=== PATIENT | male | born 1955 | race Caucasian/White ===

== ENCOUNTER 2018-07-08 19:06 | Emergency (ER) | payer OTHER ==
--- NOTE | 2018-07-08 19:55 | EDPHYS ---
Physician Documentation [facility] Name: Bob Fraga Age: 63 yrs Sex: Male : 1955 Arrival Date: 07/08/2018 Time: 19:11 Bed 12 Private MD: ED Physician Ruben Rizzo HPI: 07/08 22:10 This 63 yrs old Male presents to ER via Ambulatory with complaints of Rash. kb 22:10 The patient's rash thought to be caused by an unknown cause. The rash is located on the kb body diffusely. The rash can be described as urticarial. Onset: The symptoms/episode began/occurred today, at 12:00. Associated signs and symptoms: Pertinent positives: itching. Severity of symptoms: At their worst the symptoms were moderate in the emergency department the symptoms are unchanged. Treatment given at home: Benadryl. The patient has not experienced similar symptoms in the past. The patient has not recently seen a physician. Historical: - Allergies: 19:17 No Known Allergies; la1 - PMHx: 19:17 Hypertension; la1 - Immunization history:: Adult Immunizations up to date. - Social history:: Smoking status: Patient uses tobacco products, smokes one-half pack cigarettes per day. - Ebola Screening: : No symptoms or risks identified at this time. ROS: 22:10 Constitutional: Negative for fever, chills, and weight loss, Cardiovascular: Negative kb for chest pain, palpitations, and edema, Respiratory: Negative for shortness of breath, cough, wheezing, and pleuritic chest pain, Abdomen/GI: Negative for abdominal pain, nausea, vomiting, diarrhea, and constipation, MS/Extremity: Negative for injury and deformity, Neuro: Negative for headache, weakness, numbness, tingling, and seizure. 22:10 Skin: Positive for rash, diffusely. Exam: 22:10 Constitutional: This is a well developed, well nourished patient who is awake, alert, kb and in no acute distress. Head/Face: Normocephalic, atraumatic. Chest/axilla: Normal chest wall appearance and motion. Nontender with no deformity. No lesions are appreciated. Cardiovascular: Regular rate and rhythm with a normal S1 and S2. No gallops, murmurs, or rubs. Normal PMI, no JVD. No pulse deficits. Respiratory: Lungs have equal breath sounds bilaterally, clear to auscultation and percussion. No rales, rhonchi or wheezes noted. No increased work of breathing, no retractions or nasal flaring. Abdomen/GI: Soft, non-tender, with normal bowel sounds. No distension or tympany. No guarding or rebound. No evidence of tenderness throughout. MS/ Extremity: Pulses equal, no cyanosis. Neurovascular intact. Full, normal range of motion. Neuro: Awake and alert, GCS 15, oriented to person, place, time, and situation. Cranial nerves II-XII grossly intact. Motor strength 5/5 in all extremities. Sensory grossly intact. Cerebellar exam normal. Normal gait. 22:10 Skin: rash a moderate rash is noted, consistent with urticaria, and is diffusely located. Vital Signs: 19:17 BP 127 / 70; Pulse 80; Resp 16; Temp 97.6; Pulse Ox 98% on R/A; Weight 71.67 kg; Height la1 5 ft. 11 in. (180.34 cm); 19:17 Body Mass Index 22.04 (71.67 kg, 180.34 cm) la1 MDM: 19:38 Patient medically screened. kb 19:52 Data reviewed: vital signs, nurses notes. Data interpreted: Pulse oximetry: on room air kb is 98 %. Interpretation: normal. Counseling: I had a detailed discussion with the patient and/or guardian regarding: the historical points, exam findings, and any diagnostic results supporting the discharge/admit diagnosis, the need for outpatient follow up, a family practitioner, to return to the emergency department if symptoms worsen or persist or if there are any questions or concerns that arise at home. Administered Medications: 20:15 Drug: predniSONE 40 mg Route: PO; bb 20:28 Follow up: Response: No adverse reaction bb 20:15 Drug: Pepcid 20 mg Route: PO; bb 20:28 Follow up: Response: No adverse reaction bb Disposition: 07/09 06:53 Co-signature as Attending Physician, Ruben Rizzo MD I agree with the assessment and 4 plan of care. Disposition: 07/08/18 19:54 Discharged to Home. Impression: Urticaria. - Condition is Stable. - Discharge Instructions: Hives, [id number], Allergies, [id number]. - Prescriptions for Pepcid 20 mg Oral Tablet - take 1 tablet by ORAL route every 12 hours for 5 days; 10 tablet. Prednisone 20 mg Oral Tablet - take 1 tablet by ORAL route once daily for 5 days; 5 tablet. - Medication Reconciliation Form, Thank You Letter, Antibiotic Education, Prescription Opioid Use form. - Follow up: Emergency Department; When: As needed; Reason: Worsening of condition. Follow up: Private Physician; When: 2 - 3 days; Reason: Recheck today's complaints, Continuance of care, Re-evaluation by your physician. Signatures: Velia Nichole, [employer]INCIPAL-Louann Robles RN RN bb Angel Sevilla RN RN la1 Ruben Rizzo MD MD tw4 Corrections: (The following items were deleted from the chart) 07/08 20:29 19:54 07/08/2018 19:54 Discharged to Home. Impression: Urticaria. Condition is Stable. bb Forms are Medication Reconciliation Form, Thank You Letter, Antibiotic Education, Prescription Opioid Use. Follow up: Emergency Department; When: As needed; Reason: Worsening of condition. Follow up: Private Physician; When: 2 - 3 days; Reason: Recheck today's complaints, Continuance of care, Re-evaluation by your physician. kb
--- NOTE | 2018-07-08 19:55 | ER ---
Nurse's Notes [facility] Name: Bob Fraga Age: 63 yrs Sex: Male : 1955 Arrival Date: 07/08/2018 Time: 19:11 Bed 12 Private MD: Diagnosis: Urticaria Presentation: 07/08 19:16 Presenting complaint: Patient states: Itchy red rash all over thorax that began around la1 noon, denies SOB. Airway patent. Presenting complaint: Patient states: Benadryl 50mg taken about an hour ago. Transition of care: patient was not received from another setting of care. Onset of symptoms was July 08, 2018. Risk Assessment: Do you want to hurt yourself or someone else? Patient reports no desire to harm self or others. Initial Sepsis Screen: Does the patient meet any 2 criteria? No. Patient's initial sepsis screen is negative. Does the patient have a suspected source of infection? No. Patient's initial sepsis screen is negative. Care prior to arrival: None. 19:16 Method Of Arrival: Ambulatory la1 19:16 Acuity: CATIE 4 la1 Historical: - Allergies: 19:17 No Known Allergies; la1 - PMHx: 19:17 Hypertension; la1 - Immunization history:: Adult Immunizations up to date. - Social history:: Smoking status: Patient uses tobacco products, smokes one-half pack cigarettes per day. - Ebola Screening: : No symptoms or risks identified at this time. Screenin:43 Abuse screen: Denies threats or abuse. Nutritional screening: No deficits noted. la1 Tuberculosis screening: No symptoms or risk factors identified. Fall Risk None identified. Assessment: 19:42 General: Appears in no apparent distress. Behavior is calm, cooperative. Pain: Denies la1 pain. Neuro: Level of Consciousness is awake, alert, obeys commands, Oriented to person, place, time, situation. Cardiovascular: Capillary refill < 3 seconds Patient's skin is warm and dry. Respiratory: Airway is patent Respiratory effort is even, unlabored, Respiratory pattern is regular, symmetrical. GI: No signs and/or symptoms were reported involving the gastrointestinal system. : No signs and/or symptoms were reported regarding the genitourinary system. Derm: Rash noted that is macular, itchy, red, raised, urticaria, on back, chest and abdomen. 20:28 Reassessment: Patient is alert, oriented x 3, equal unlabored respirations, skin bb warm/dry/pink. pt verbalized understanding of and agrees to plan of care discharge instructions given pt ambulated with steady gait to exit accompanied by family. Vital Signs: 19:17 BP 127 / 70; Pulse 80; Resp 16; Temp 97.6; Pulse Ox 98% on R/A; Weight 71.67 kg; Height la1 5 ft. 11 in. (180.34 cm); 19:17 Body Mass Index 22.04 (71.67 kg, 180.34 cm) la1 ED Course: 19:11 Patient arrived in ED. es 19:17 Triage completed. la1 19:17 Arm band placed on left wrist. la1 19:28 Velia Nichole FNP-C is [facility]. kb 19:28 Ruben Rizzo MD is Attending Physician. kb 19:43 Call light in reach. Side rails up X 1. la1 19:43 No provider procedures requiring assistance completed. la1 20:29 Patient did not have IV access during this emergency room visit. bb Administered Medications: 20:15 Drug: predniSONE 40 mg Route: PO; bb 20:28 Follow up: Response: No adverse reaction bb 20:15 Drug: Pepcid 20 mg Route: PO; bb 20:28 Follow up: Response: No adverse reaction bb Outcome: 19:54 Discharge ordered by . kb 20:29 Discharged to home ambulatory, with family. bb 20:29 Condition: stable 20:29 Discharge instructions given to patient, Instructed on discharge instructions, follow up and referral plans. medication usage, Demonstrated understanding of instructions, follow-up care, medications, Prescriptions given X 2. 20:29 Patient left the ED. bb Signatures: Velia Nichole FNP-C FNP-Ckb Salyer, Edna es Ballard, Brenda, RN RN bb Angel Sevilla RN RN la1
[2018-07-08] MEDS ORDERED: FAMOTIDINE 20 MG TAB ONE (20:37)
[2018-07-08] MEDS ORDERED: predniSONE 20 MG TAB ONE (20:37)
== END 2018-07-08 20:29 | disposition home or self-care (01) ==
LOC: ER 19:06
DX: L50.9 Urticaria, unspecified (principal); I10 Essential (primary) hypertension; F17.210 Nicotine dependence, cigarettes, uncomplicated
CPT/HCPCS: 99283; J7512

== ENCOUNTER 2022-04-06 16:21 | Inpatient (IN) | payer OTHER ==
--- OUTSIDE RECORDS SUMMARY | 2022-04-06 16:24 | XMS REPORT | Continuity of Care Document ---
:1955 Author Organization [facility] t Address [address] [place] [address] Care Team Providers Name Role Phone 2, [facility] Attending Clinician Unavailable Lisa Lombardi MD Attending Clinician Doctor Unassigned, [place] Attending Clinician Unavailable Payers Payer Name Policy Type Policy Number Effective Date Expiration Date S ource Problems This patient has no known problems. Allergies, Adverse Reactions, Alerts This patient has no known allergies or adverse reactions. Social History Social Habit Start Date Stop Date Quantity Comments Source Sex Assigned [facility] Smoking Status Start Date Stop Date Source Unknown if ever smoked [facility] Medications This patient has no known medications. Procedures Procedure Date / Time Performing Clinician Source Performed AGREEMENTS AUTHORIZATIONS 2019-04-11 06:01:00 Doctor Connie, [facility] AND IRREVOCABLE [place] [facility] ASSIGNMENTS (FORM 2000) Encounters Start End Encounter Admission Attending Care Care Encounter Source Date/Time Date/Time Type Type Clinicians Facility Department ID 2019-04-11 2019-04-11 Library Helper 2, Ad[facility] Lab [facility] [id number] Univers 10:35:56 10:50:56 Visit Lisa Lombardi [id number] [facility] [id number] [phone] [place] [address] [address] [facility] 2019-04-11 2019-04-11 Orders Doctor NAGY [id number] Univers 00:00:00 00:00:00 Only UnassignedNYASIA [id number] ity of [place] [facility] [id number] Alessandro as [phone] Medi darrius [address] Branch Results This patient has no known results.
[2022-04-06 18:17] LABS: Hematocrit 29.5 % (39.6-49.0); Lymphocytes % 5.6 % (15.3-44.8); MCV 85.3 fL (80-100); RBC Red Blood Cell Count 3.45 M/uL (4.33-5.43)
[2022-04-06 18:27] LABS: Protime INR 1.02
[2022-04-06 18:31] LABS: SARS-CoV-2 Antigen Rapid Res Negative (Negative)
--- NOTE | 2022-04-06 18:34 | ER ---
Nurse's Notes [facility] Name: Bob Fraga Age: 67 yrs Sex: Male : 1955 Arrival Date: 04/06/2022 Time: 16:26 Bed 15 Private MD: Diagnosis: Intertrochanteric fracture of femur;Syncope Near;Hypo-osmolality and hyponatremia Presentation: 04/06 16:29 Chief complaint: EMS states: MALAISE x1 WK WITH COVID, LOW BP TODAY. Coronavirus bp screen: Client reports previous positive COVID test result. Ebola Screen: No symptoms or risks identified at this time. Initial Sepsis Screen: Does the patient meet any 2 criteria? No. Patient's initial sepsis screen is negative. Does the patient have a suspected source of infection? No. Patient's initial sepsis screen is negative. Risk Assessment: Do you want to hurt yourself or someone else? Patient reports no desire to harm self or others. Onset of symptoms is unknown. Care prior to arrival: IV initiated. 20 GA, in the left forearm. 16:29 Method Of Arrival: EMS: [facility] bp 16:29 Acuity: CATIE 3 bp Triage Assessment: 16:30 General: Appears in no apparent distress. comfortable, Behavior is calm, cooperative, bp appropriate for age. Pain: Denies pain. EENT: No deficits noted. Neuro: Level of Consciousness is awake, alert, obeys commands, Oriented to Appropriate for age Reports weakness GENERAL. Cardiovascular: No deficits noted. Respiratory: No deficits noted. GI: No signs and/or symptoms were reported involving the gastrointestinal system. : No signs and/or symptoms were reported regarding the genitourinary system. Derm: No deficits noted. Musculoskeletal: No deficits noted. Historical: - Allergies: 16:30 No Known Allergies; bp - Home Meds: 16:30 lisinopril 20 mg Oral tab 1 tab once daily [Active]; bp - PMHx: 16:30 Hypertension; bp - Immunization history:: Adult Immunizations up to date. - Social history:: Smoking status: Patient denies any tobacco usage or history of. Screenin:31 [facility] ED Fall Risk Assessment (Adult) History of falling in the last 3 months, bp including since admission Yes- single mechanical fall (1 pt) Confusion or Disorientation No (0 pts) Intoxicated or Sedated No (0 pts) Impaired Gait Yes (1 pt) Mobility Assist Device Used No (0 pt) Altered Elimination No (0 pt) Score/Fall Risk Level 0 - 2 = Low Risk Oriented to surroundings, Maintained a safe environment, Educated pt \T\ family on fall prevention, incl call for assistance when getting out of bed. Abuse screen: Denies threats or abuse. Denies injuries from another. Nutritional screening: No deficits noted. Tuberculosis screening: No symptoms or risk factors identified. Assessment: 16:31 General: SEE TRIAGE NOTE. bp 18:15 Reassessment: No changes from previously documented assessment. R HIP GROSSLY ABNORMAL bp ON XRAY. 19:15 General: Appears in no apparent distress. comfortable, Behavior is calm, cooperative, bp appropriate for age. Pain: Denies pain. Neuro: Level of Consciousness is awake, alert, obeys commands, Oriented to person, place, time, situation. Cardiovascular: Capillary refill < 3 seconds Patient's skin is warm and dry. Respiratory: Airway is patent Respiratory effort is even, unlabored, Respiratory pattern is regular, symmetrical. GI: No signs and/or symptoms were reported involving the gastrointestinal system. Abdomen is round non-distended. : No signs and/or symptoms were reported regarding the genitourinary system. EENT: No signs and/or symptoms were reported regarding the EENT system. Derm: No signs and/or symptoms reported regarding the dermatologic system. Skin is pink, warm \T\ dry. Musculoskeletal: No signs and/or symptoms reported regarding the musculoskeletal system. Circulation, motion, and sensation intact. Range of motion: intact in all extremities. 20:15 Reassessment: Patient appears in no apparent distress at this time. Patient and/or bp family updated on plan of care and expected duration. Pain level reassessed. Patient is alert, oriented x 3, equal unlabored respirations, skin warm/dry/pink. 21:20 General: Appears comfortable, Behavior is calm, cooperative. Pain: Denies pain. Neuro: ha1 Level of Consciousness is awake, alert, obeys commands, Oriented to person, place, time, situation. Cardiovascular: Capillary refill < 3 seconds Patient's skin is warm and dry. Respiratory: Airway is patent Respiratory effort is even, unlabored, Respiratory pattern is regular, symmetrical. GI: 21:45 Reassessment: Patient and/or family updated on plan of care and expected duration. Pain ha1 level reassessed. Patient is alert, oriented x 3, equal unlabored respirations, skin warm/dry/pink. notified care provider of low BP. 22:00 Reassessment: Patient and/or family updated on plan of care and expected duration. Pain ha1 level reassessed. Patient is alert, oriented x 3, equal unlabored respirations, skin warm/dry/pink. Patient denies pain at this time. Vital Signs: 16:29 BP 110 / 60; Pulse 85; Resp 17; Temp 98; Pulse Ox 95% ; bp 18:15 BP 91 / 71; Pulse 90; Resp 16; Pulse Ox 100% ; bp 19:15 BP 87 / 68; Pulse 87; Resp 16; Pulse Ox 100% on R/A; bp 20:15 BP 93 / 81; Pulse 90; Resp 17; Pulse Ox 100% on R/A; bp 21:30 BP 100 / 65; Pulse 84; Resp 18 S; Pulse Ox 99% on R/A; ha1 21:45 BP 91 / 60; Pulse 73; Resp 18 S; Pulse Ox 100% on R/A; ha1 22:00 BP 106 / 67; Pulse 78; Resp 18 S; Pulse Ox 100% on R/A; ha1 ED Course: 16:26 Patient arrived in ED. bp 16:30 Triage completed. bp 16:30 Arm band placed on. bp 16:31 Patient has correct armband on for positive identification. Bed in low position. Call bp light in reach. Side rails up X2. 16:31 Maintain EMS IV. Dressing intact. Good blood return noted. Site clean \T\ dry. Gauge \T\ bp site: 20 GAUGE LEFT FA. 16:52 Adrián Hogan MD is Attending Physician. bs3 17:21 Slick Britton, GREGORIO is Primary Nurse. bp 17:59 Inserted saline lock: 20 gauge in right forearm, using aseptic technique. Blood bp collected. 18:32 Nate Duke MD is Hospitalizing Provider. bs3 20:21 Notified Nurse Practitioner and/or Physician Hazardous Materials Handler of a critical lab result(s), bb lactate of 3.8 Angel Sevilla RACE RELATIONS ADVISER notified. 21:00 Joseph cath inserted, using sterile technique, 16 Fr., by ny, balloon inflated, to bp gravity drainage, urine specimen collected. Patient tolerated well. 04/07 07:19 Attending Physician role handed off by Adrián Hogan MD sp3 07:19 Lilly Trujillo MD is Attending Physician. sp3 Administered Medications: 04/06 21:54 Discontinued: Lactated Ringers Solution 1000 ml IV at calculated rate continuous la1 17:30 Drug: NS 0.9% 500 ml Route: IV; Rate: bolus; Site: left forearm; bp 18:59 CANCELLED (Other Intervention Used): NS 0.9% 1000 ml IV at 1000 ml once la1 20:30 Drug: Potassium Chloride 20 mEq Route: IV; Rate: calculated rate; Site: left wrist; bp 20:30 Drug: Lactated Ringers Solution 1000 ml Route: IV; Rate: calculated rate; Site: left bp wrist; 20:50 Drug: NS 0.9% 1000 ml Route: IV; Rate: 1000 ml; Site: left forearm; ha1 21:55 CANCELLED (Other Intervention Used): Potassium Chloride 20 mEq IV at bolus once; la1 administer over 1-2 hours 23:06 Drug: NS 0.9% 1000 ml Route: IV; Rate: 125 ml/hr; Site: left forearm; ha1 Medication: 16:31 VIS not applicable for this client. bp Outcome: 18:33 Decision to Hospitalize by Provider. bs3 04/07 16:19 Patient left the ED. mb9 Signatures: Louann Richter, RN RN bb Slick Britton RN RN bp Lilly Trujillo MD MD sp3 Renetta Orozco RN RN [facility] Adrián Hogan MD MD [facility] center[facility] jacob RN RN mb9 Angle Sevilla [facility] Corrections: (The following items were deleted from the chart) 04/06 20:40 19:15 General: Appears in no apparent distress. comfortable, Behavior is calm, bp cooperative, appropriate for age, bp 21:10 19:15 Joseph cath inserted, using sterile technique, 16 Fr., by me, balloon inflated, to bp gravity drainage, urine specimen collected. Patient tolerated well. bp
--- NOTE | 2022-04-06 18:34 | EDPHYS ---
Physician Documentation [facility] Name: Bob Fraga Age: 67 yrs Sex: Male : 1955 Arrival Date: 04/06/2022 Time: 16:26 Bed 15 Private MD: ED Physician Lilly Trujillo HPI: 04/06 17:29 This 67 yrs old Male presents to ER via EMS with complaints of Blood Pressure bs3 Problem. 17:29 67-year-old male history of hypertension per EMS was diagnosed with COVID last week and bs3 has felt weak since then however today after going to the bathroom he got lightheaded and dizzy when he was walking and fell he notes hitting his knees and his hip he denies loss of consciousness head injury/strike or neck pain he denies actually passing out he notes that he was treated with for COVID but he is not sure what he was treated with he denies any presyncopal headache chest pain shortness of breath or abdominal pain. Historical: - Allergies: 16:30 No Known Allergies; bp - Home Meds: 16:30 lisinopril 20 mg Oral tab 1 tab once daily [Active]; bp - PMHx: 16:30 Hypertension; bp - Immunization history:: Adult Immunizations up to date. - Social history:: Smoking status: Patient denies any tobacco usage or history of. ROS: 17:29 Constitutional: Negative for fever, chills bs3 17:29 All other systems are negative. Exam: 17:29 Constitutional: This is a well developed, well nourished patient who is awake, alert, bs3 and in no acute distress. Head/Face: Normocephalic, atraumatic. Eyes: Pupils equal round and reactive to light, extra-ocular motions intact. Lids and lashes normal. Neck: Trachea midline, no thyromegaly, no neck stiffness Chest/axilla: Normal chest wall appearance and motion. Nontender with no deformity. No lesions are appreciated. Cardiovascular: Regular rate and rhythm with a normal S1 and S2. symmetric pulses in upper extremities Respiratory: Lungs have equal breath sounds bilaterally, clear to auscultation, no respiratory distress Skin: Warm, dry with normal turgor. Normal color with no rashes, no lesions, and no evidence of cellulitis. MS/ Extremity: Right leg shortened and externally rotated pain with logroll and axial loading Neuro: Awake and alert, GCS 15, oriented to person, place, time, and situation. Cranial nerves II-XII grossly intact. Motor strength 5/5 in all extremities. Sensory grossly intact. Psych: Awake, alert, with orientation to person, place and time. Behavior, mood, and affect are within normal limits. Vital Signs: 16:29 BP 110 / 60; Pulse 85; Resp 17; Temp 98; Pulse Ox 95% ; bp 18:15 BP 91 / 71; Pulse 90; Resp 16; Pulse Ox 100% ; bp 19:15 BP 87 / 68; Pulse 87; Resp 16; Pulse Ox 100% on R/A; bp 20:15 BP 93 / 81; Pulse 90; Resp 17; Pulse Ox 100% on R/A; bp 21:30 BP 100 / 65; Pulse 84; Resp 18 S; Pulse Ox 99% on R/A; ha1 21:45 BP 91 / 60; Pulse 73; Resp 18 S; Pulse Ox 100% on R/A; ha1 22:00 BP 106 / 67; Pulse 78; Resp 18 S; Pulse Ox 100% on R/A; ha1 MDM: 16:52 Patient medically screened. bs3 17:29 Differential Diagnosis Patient with presyncope possible cardiac etiology possible bs3 vasovagal possible dehydration possibly related to recent COVID illness he also may have sustained an acute fracture of his hip we will get x-rays we will give fluids will evaluate for electrolyte abnormality will evaluate for infectious process patient does not want pain medicine right now. Data reviewed: vital signs, nurses notes. 18:31 Consideration of Admission/Observation Patient was admitted/placed on observation. bs3 Management of patient was discussed with the following: Hospitalist: Hospitalist agreed with plan will follow urinalysis no signs of acute infection currently. Helicopter Pilot: Discussed with Ortho who agreed with plan. Independent interpretation of the following test(s) in the Emergency Department EKG: See my EKG interpretation above X-Ray: My interpretation is Patient has a graft in his aorta on reassessment he does note that he had surgery no pneumonia, x-ray of his hip shows intertrochanteric fracture. ED course: Will admit for presyncope and hip fracture. 19:00 ED course: Patient found to be hyponatremic likely multifactorial in the setting of bs3 recent COVID infection, dehydration also hypokalemic patient received IV fluid bolus. 04/06 17:08 Order name: Basic Metabolic Panel 3 04/06 17:08 Order name: CBC with Diff 3 04/06 17:08 Order name: Troponin HS 3 04/06 17:08 Order name: Type And Screen [facility] 04/06 17:08 Order name: PT-INR [facility] 04/06 17:08 Order name: SARS-COV-2 Antigen Rapid [facility] 04/06 18:19 Order name: CBC with Automated Diff; Complete Time: 18:24 EDMS 04/06 18:27 Order name: Protime (+INR); Complete Time: 18:27 EDMS 04/06 18:29 Order name: Urinalysis w/ reflexes; Complete Time: 21:48 [facility] 04/06 18:31 Order name: SARS-COV-2 Antigen Rapid; Complete Time: 18:48 EDMS 04/06 18:49 Order name: Urine Microscopic Only; Complete Time: 21:48 [facility] 04/06 18:49 Order name: Blood Culture Adult (2) ar04/06 18:49 Order name: Lactate w/ 2H reflex if indic. ar04/06 18:50 Order name: Type and Screen [facility] 04/06 19:00 Order name: Basic Metabolic Panel; Complete Time: 19:01 EDMS 04/06 19:00 Order name: Troponin High Sensitivity; Complete Time: 19:01 EDMS 04/06 19:00 Order name: Urine Osmolality ar04/06 19:00 Order name: Osmolality, Serum ar04/06 19:00 Order name: Urine Sodium Random; Complete Time: 21:48 ar04/06 19:00 Order name: Urine Potassium Random; Complete Time: 21:48 ar04/06 19:03 Order name: BMP [facility] 04/06 20:20 Order name: Basic Metabolic Panel; Complete Time: 20:42 EDMS 04/06 20:21 Order name: Lactate w/ 2H reflex if indic.; Complete Time: 20:42 EDMS 04/06 20:36 Order name: Osmolality, Serum; Complete Time: 20:42 EDMS 04/06 21:23 Order name: CPK ar04/06 21:34 Order name: Urine Dipstick-Ancillary; Complete Time: 21:48 EDMS 04/06 21:55 Order name: ABG la04/06 21:55 Order name: Cortisol la1 04/06 21:55 Order name: TSH la1 04/06 21:55 Order name: Uric Acid la1 04/06 17:08 Order name: XRAY Chest (1 view) 3 04/06 17:08 Order name: EKG; Complete Time: 17:09 bs3 04/06 17:08 Order name: Cardiac monitoring; Complete Time: 17:59 bs3 04/06 17:08 Order name: EKG - Nurse/Tech; Complete Time: 18:24 bs3 04/06 17:08 Order name: XRAY Hip RIGHT 2 view bs3 04/06 17:08 Order name: Pelvis XRAY bs3 04/06 17:08 Order name: Femur Right XRAY bs3 04/06 18:44 Order name: RAD; Complete Time: 18:48 EDMS 04/06 18:44 Order name: RAD; Complete Time: 18:48 EDMS 04/06 18:45 Order name: RAD; Complete Time: 18:48 EDMS 04/06 18:45 Order name: RAD; Complete Time: 18:48 EDMS 04/06 22:43 Order name: Creatine Phosphokinase EDCO 04/06 22:54 Order name: ABO/RH no charge EDMS 04/07 00:15 Order name: Lactate Sepsis 2 HR Follow-up EDMS 04/07 02:30 Order name: CBC with Automated Diff EDMS 04/07 02:41 Order name: Creatine Phosphokinase EDMS 04/07 02:41 Order name: Lipid Profile EDMS 04/07 02:41 Order name: Magnesium EDMS 04/07 02:43 Order name: Basic Metabolic Panel EDMS 04/07 08:14 Order name: Basic Metabolic Panel EDMS 04/07 08:57 Order name: US EDMS 04/07 11:55 Order name: Gram Stain--Aerobic Bottle EDMS 04/07 11:57 Order name: Basic Metabolic Panel EDMS 04/07 15:32 Order name: Basic Metabolic Panel EDMS 04/07 15:47 Order name: Gram Stain--Anaerobic Bottle EDMS 04/06 17:08 Order name: IV Saline Lock; Complete Time: 17:58 bs3 04/06 17:08 Order name: Labs collected and sent; Complete Time: 17:59 bs3 04/06 17:08 Order name: O2 Per Protocol; Complete Time: 17:59 bs3 04/06 17:08 Order name: O2 Sat Monitoring; Complete Time: 17:59 bs3 04/06 20:42 Order name: Joseph; Complete Time: 21:11 la1 Administered Medications: 21:54 Discontinued: Lactated Ringers Solution 1000 ml IV at calculated rate continuous la1 17:30 Drug: NS 0.9% 500 ml Route: IV; Rate: bolus; Site: left forearm; bp 18:59 CANCELLED (Other Intervention Used): NS 0.9% 1000 ml IV at 1000 ml once la1 20:30 Drug: Potassium Chloride 20 mEq Route: IV; Rate: calculated rate; Site: left wrist; bp 20:30 Drug: Lactated Ringers Solution 1000 ml Route: IV; Rate: calculated rate; Site: left bp wrist; 20:50 Drug: NS 0.9% 1000 ml Route: IV; Rate: 1000 ml; Site: left forearm; ha1 21:55 CANCELLED (Other Intervention Used): Potassium Chloride 20 mEq IV at bolus once; la1 administer over 1-2 hours 23:06 Drug: NS 0.9% 1000 ml Route: IV; Rate: 125 ml/hr; Site: left forearm; ha1 Disposition Summary: 04/06/22 18:33 Hospitalization Ordered Hospitalization Status: Inpatient Admission bs3 Provider: Nate Duke bs3 Condition: Stable bs3 Problem: new bs3 Symptoms: are unchanged bs3 Bed/Room Type: Standard 3 Location: Telemetry/MedSur (Inpatient)(04/07/22 15:11) Room Assignment: [facility](04/07/22 15:11) Diagnosis - Intertrochanteric fracture of femur bs3 - Syncope Near bs3 - Hypo-osmolality and hyponatremia bs3 Forms: - Medication Reconciliation Form bs3 - SBAR form bs3 Critical care time excluding procedures: 19:00 Critical care time: Bedside Care: 36 minutes, Consultation: 15 minutes. Total time: 51 bs3 minutes Signatures: Dis[facility] N[facility] Pham RN RN Angel Sevilla, [place] FSCM DEVELOPER-C [employer] FSCM DEVELOPER-Joseph1 Slick Britton RN RN bp Ayala, Heidy, RN RN ha1 Adrián Hogan MD MD bs3 Amaya Snowden ed2 Corrections: (The following items were deleted from the chart) 18:59 18:49 NS 0.9% 1000 ml IV at 1000 ml once ordered. la1 la1 19:03 18:33 Telemetry/MedSurg (Inpatient) bs3 bs3 19:03 18:33 bs3 bs3 21:55 19:00 Potassium Chloride 20 mEq IV at bolus once; administer over 1-2 hours ordered. bs3la1 21:55 21:55 Potassium Chloride 20 mEq IV at bolus once; administer over 1-2 hours ordered. la1la1 23:02 19:03 Intensive Care Unit bs3 ed2 23:02 19:03 bs3 ed2 04/07 15:11 04/06 23:02 [facility] ER HOLD ed2 ss 04/07 15:11 04/06 23:02 ERHOLD- ed2 ss
--- NOTE | 2022-04-06 18:44 | RAD REPORT ---
EXAM DESCRIPTION: RAD - Pelvis - 04/06/2022 6:32 pm CLINICAL HISTORY: BLUNT TRAUMA COMPARISON: No comparisons FINDINGS/IMPRESSION: Displaced right intertrochanteric hip fracture. No other fractures identified.
--- NOTE | 2022-04-06 18:44 | RAD REPORT ---
EXAM DESCRIPTION: RAD - Chest Single View - 04/06/2022 6:32 pm CLINICAL HISTORY: COUGH COMPARISON: CHEST SINGLE VIEW dated 03/24/2015 FINDINGS: Lines: None. Lungs: No evidence of edema or pneumonia. Pleural: No significant pleural effusions or pneumothorax. Cardiac: The heart size is within normal limits. Mediastinum: Within normal limits. Bones: No acute fractures. Other: Stent graft and descending thoracic aorta. IMPRESSION: No acute cardiopulmonary disease.
--- NOTE | 2022-04-06 18:44 | RAD REPORT ---
EXAM DESCRIPTION: RAD - Hip Right 2 View - 04/06/2022 6:32 pm CLINICAL HISTORY: DEFORMITY COMPARISON: No comparisons FINDINGS/IMPRESSION: Displaced right intertrochanteric hip fracture with probably mild comminution. Varus deformity. No dislocation.
--- NOTE | 2022-04-06 18:44 | RAD REPORT ---
EXAM DESCRIPTION: RAD - Femur Right - 04/06/2022 6:32 pm CLINICAL HISTORY: DEFORMITY COMPARISON: No comparisons FINDINGS/IMPRESSION: Displaced right intertrochanteric hip fracture. No other femur fracture identif ied. Tricompartmental degenerative changes are present at the knee.
[2022-04-06 18:56] LABS: Potassium 2.6 mmol/L (3.5-5.1); Troponin High Sensitivity 31.8 pg/mL (<58.9)
[2022-04-06] MEDS ORDERED: KCL 20 MEQ/100 mL IVPB 100 ML IV ONE ×2 (20:38→22:25)
[2022-04-06] MEDS ORDERED: Ringers Lactate 1,000 ML IV ONE (20:45)
[2022-04-06 21:34] LABS: Urine Blood Negative (Negative); Urine Glucose Negative (Negative); Urine Protein 1+ (Negative); Urine Specific Gravity 1.015 (1.005-1.030)
[2022-04-06 21:41] LABS: Urine Bacteria None Seen /HPF (<20)
[2022-04-06 21:43] LABS: Specific Gravity 1.015 (1.005-1.030); Urine Bacteria None Seen /HPF (<20); Urine Bilirubin NEGATIVE (Negative); Urine Blood Negative (Negative); Urine Clarity Clear (Clear); Urine Color Yellow (Yellow); Urine Glucose NEGATIVE (Negative); Urine Mucus Slight /HPF (None Seen); Urine Protein TRACE (Negative); Urine Urobilinogen Normal (Normal); Urine WBC Clump Rare /HPF (None Seen)
[2022-04-06 21:46] LABS: UR SODIUM < 15 mmol/L (27-287)
[2022-04-06] MEDS ORDERED: NA CHLORIDE 0.9% 1,000 ML ONE ×2 (22:00→22:24)
[2022-04-06 22:23] LABS: Blood Gas Oxyhemoglobin 95.3 % (94-97); Blood O2 Saturation 97.6 % (92-98.5)
[2022-04-06 22:40] LABS: Thyroid Stimulating Hormone 0.489 uIU/mL (0.358-3.740); Uric Acid 9.4 mg/dL (3.5-7.2)
[2022-04-06] MEDS ORDERED: ONDANSETRON 4 MG/2 ML VIAL IV PRN (22:47)
[2022-04-06] MEDS ORDERED: ACETAMINOPHEN 500 MG TAB PO PRN (22:47)
[2022-04-06] MEDS: NA CHLORIDE 0.9% 1,000 ML IV SCH (22:47)
--- NOTE | 2022-04-06 22:56 | P.HP ---
Certification for Inpatient Patient admitted to: Inpatient With expected LOS: >2 Midnights Patient will require the following post-hospital care: None Practitioner: I am a practitioner with admitting privileges, knowledge of patient current condition, hospital course, and medical plan of care. Services: Services provided to patient in accordance with Admission requirements found in Title 42 Section 412.3 of the Code of Federal Regulations Patient History Date of Service: 04/06/22 Reason for admission: Right hip fracture, hyponatremia History of Present Illness: 67-year-old male with history of hypertension, previous aortic aneurysm repair presents to the emergency department after a near syncopal episode and fall with right leg pain. He reports that he got up out of bed, walked to the toilet and while walking back got suddenly dizzy and collapsed, he did not lose consciousness but did injure his right lower extremity. He also reports testing positive for COVID on 03/27/2022, has not been feeling well with poor oral intake since then. He was evaluated here in the emergency department initially x-ray showed right intertrochanteric femur fracture, labs were obtained which revealed patient had severe hyponatremia with a sodium of 111 potassium 2.6 chloride 72 bicarb 20 BUN 47 creatinine 2.22 GFR 32 white blood cell count 17.4 hemoglobin 10.5. Patient was given 500 cc NS bolus in the ED as well as IV potassium. I discussed the case further with nephrology recommended bolus of normal saline followed by NS at 125 given patient's soft blood pressure and appearance of being dry. Additional labs were obtained which showed elevated CPK 1145 lactic acid 3.8. No source of infection identified suspect elevations in white blood cell count reactive. Allergies NKDA Allergy (Uncoded 03/24/15 09:56) Unknown - Past Medical/Surgical History -: Hypertension -: Aortic aneurysm repair -: Aortic aneurysm repair 2016 Psychosocial/ Personal History: Patient lives at home with his - Family History Family History: Reviewed- Non-Contributory - Social History Smoking Status: Never smoker Alcohol use: No CD- Drugs: No Caffeine use: Yes Place of Residence: Home Review of Systems 10-point ROS is otherwise unremarkable General: Weakness, Malaise Musculoskeletal: Leg Pain Physical Examination - Physical Exam General: Alert, In no apparent distress, Oriented x3 HEENT: Atraumatic, PERRLA, Mucous membr. moist/pink, EOMI, Sclerae nonicteric Neck: Supple, 2+ carotid pulse no bruit, No LAD, Without JVD or thyroid abnormality Respiratory: Clear to auscultation bilaterally, Normal air movement Cardiovascular: Regular rate/rhythm, Normal S1 S2 Gastrointestinal: Normal bowel sounds, No tenderness Musculoskeletal: No tenderness, Other (External rotation, shortening right lower extremity) Integumentary: No rashes Neurological: Normal speech, Normal strength at 5/5 x4 extr, Normal tone - Studies Laboratory Data (last 24 hrs) 04/06/22 19:44: Sodium 111 L*, Potassium 3.0 L D, BUN 49 H, Creatinine 2.29 H, Glucose 126 H 04/06/22 18:00: Uric Acid 9.4 H 04/06/22 18:00: PT 11.2, INR 1.02 04/06/22 18:00: WBC 17.40 H, Hgb 10.5 L, Hct 29.5 L, Plt Count 115 L 04/06/22 18:00: Sodium 111 L*, Potassium 2.6 L*, BUN 47 H, Creatinine 2.22 H, Glucose 139 H Assessment and Plan - Plan Assessment: Severe hypovolemic hyponatremia Right intertrochanteric femur fracture Hypokalemia Rhabdomyolysis Leukocytosis, lactic acidosis Hypertension Previous aortic aneurysm [id number] Plan: Severe hypovolemic hyponatremia Case discussed with nephrology, additional labs ordered. Continue IV fluid bolus, maintenance fluids. Repeat chemistry 3 AM, 4 hours after bolus. Patient reports poor oral intake the last 1 week as he was diagnosed with COVID. Appears quite dry. Right intertrochanteric femur fracture Orthopedics consulted, will see patient. Hypokalemia Replaced in ED, will continue replacement as needed. Rhabdomyolysis Fluid bolus currently infusing, trend CPK level. Leukocytosis, lactic acidosis Suspect this is secondary to rhabdomyolysis, hypovolemia/hypotension. Continue IV fluids, no source of infection identified, no fevers. Hypertension Hold oral antihypertensive agents. Restart appropriate. Previous aortic aneurysm [id number] Stable, no chest pain. DVT PPX: SCD Code status: Full Discharge Plan: Home Plan to discharge in: Greater than 2 days - Advance Directives Does patient have a Living Will: No Does patient have a Durable POA for Healthcare: No - Code Status/Comfort Care Code Status Assessed: Yes (Full code) Critical Care: No Time Spent Managing Pts Care (In Minutes): 70
[2022-04-07 02:25] LABS: Absolute Lymphocytes (CBC) 0.8 K/uL (0.7-4.9); Hematocrit 24.2 % (39.6-49.0); Lymphocytes % 4.6 % (15.3-44.8); MCV 83.5 fL (80-100); MPV 9.5 fL (7.6-11.3)
[2022-04-07 02:41] LABS: Magnesium 2.2 mg/dL (1.6-2.4)
[2022-04-07 02:42] LABS: Potassium 3.1 mmol/L (3.5-5.1)
[2022-04-07] MEDS ORDERED: NA CHLORIDE 0.9% 1,000 ML ONE ×2 (05:43→15:50)
[2022-04-07] MEDS: NA CHLORIDE 0.9% 1,000 ML IV SCH ×2 (06:59→14:47)
[2022-04-07] MEDS ORDERED: INFLUENZA VACCINE (for 6+ mo) 0.5 ML DOSE IMVAC ONE (08:00)
[2022-04-07] MEDS ORDERED: PNEUMOCOCCAL VACCINE 0.5 ML IMVAC ONE (08:00)
[2022-04-07 08:11] LABS: Potassium 2.9 mmol/L (3.5-5.1)
--- NOTE | 2022-04-07 08:57 | RAD REPORT ---
EXAM DESCRIPTION: US - Renal Ultrasound-Complete - 04/07/2022 12:33 am CLINICAL HISTORY: jose ramon Flank pain COMPARISON: No comparisons FINDINGS: Both kidneys are normal in size, shape and echotexture. Benign renal cysts bilaterally. The right kidney measures 10.7 x 5.7 x 4.7 cm. No hydronephrosis, focal mass or perinephric fluid. The left kidney measures 10.8 x 5.3 x 4.5 cm. No hydronephrosis, focal mass or perinephric fluid. The urinary bladder is incompletely distended without gross abnormality seen. IMPRESSION: Bilateral benign appearing renal cysts, otherwise negative study.
[2022-04-07] MEDS: KCL 20 MEQ/100 mL IVPB 20 MEQ/100 ML BAG IV SCH ×2 (09:00→11:26)
[2022-04-07] MEDS ORDERED: KCL 20 MEQ/100 mL IVPB 100 ML IV ONE ×2 (09:28→11:28)
[2022-04-07] MEDS ORDERED: NA CHLORIDE 0.9% 500 ML IV ONE (11:17)
--- NOTE | 2022-04-07 11:52 | EKG ---
Test Date: 2022-04-06 Test Time: 18:24:46 V Belt Curer: MELISSA MEASUREMENT RESULTS: Intervals: Rate: 84 IN: 182 QRSD: 90 QT: 398 QTc: 470 [place]: P: 54 IN: 182 QRS: -52 T: 86 INTERPRETIVE STATEMENTS: Normal sinus rhythm Left axis deviation Prolonged QT Abnormal ECG Compared to ECG 03/24/2015 07:25:54 Sinus bradycardia no longer present Left ventricular hypertrophy no longer present ST (T wave) deviation no longer present Possible ischemia no longer present Electronically Signed On 04-07-22 11:51:08 MOTOR VEHICLE DISPATCHER by Obey Myrick
[2022-04-07 11:55] LABS: Potassium 3.1 mmol/L (3.5-5.1)
[2022-04-07] MEDS ORDERED: POTASSIUM 25 MEQ EFFERV TAB PO ONE ×2 (12:13→20:00)
--- NOTE | 2022-04-07 12:55 | CON ---
Date of Consultation: 04/07/2022 Reason For Consultation: Hyponatremia, elevated BUN and creatinine. History Of Present Illness: This is a 67-year-old gentleman with significant past medical history of hypertension, AAA status post repair. The patient came to the hospital feeling dizzy, weak. The patient found to have elevation in BUN and creatinine, and hyponatremia. For that reason, we have been consulted. The patient was diagnosed with COVID last week, treated, recovered. The patient also found to have humeral fracture. The patient apparently being as outpatient on hydrochlorothiazide. Upon arrival, sodium 111 and creatinine 2.2. The patient denied taking any nonsteroidal. Past Medical History: Includes; 1. Hypertension. 2. AAA repair. Past Surgical History: Includes AAA repair. Family History: Positive for hypertension. Social History: Denied smoking, denied drinking, denied drugs abuse. Allergies: NO KNOWN DRUGS ALLERGY. Home Medications: Include; 1. Simvastatin. 2. Lisinopril with hydrochlorothiazide. 3. Amlodipine. 4. Metoprolol. Current Medications: Include IV fluid and KCl, acetaminophen, normal saline. Review of Systems: Head and Neck: No red eye. No ear pain. GI: No nausea. No vomiting. : No polyuria. No dysuria. No hematuria. Antichecking Iron Worker: Not applicable. Respiratory: No shortness of breath. Cardiovascular: No chest pain. Endocrine: No polydipsia. Skin: No rash. Neuro: Has neuropathy. Musculoskeletal: Has pain on the hip and fatigue. Physical Examination: Vital Signs: When I saw the patient; blood pressure 92/62, pulse of 80, afebrile. Chest: Clear to auscultation. Heart: S1, S2. Systolic murmur. Abdomen: Soft, nontender. Extremity: No edema. Fracture on the hip. Neurologic: Alert. No focality. Laboratory Data: WBC 16.5, H and H 8.6/24.2. Sodium upon admission 111, potassium 3, bicarb 22, BUN 49, creatinine 2.2, calcium 8.5. This is at 8 at night. Today at 11; sodium 119, potassium 3.1, bicarb 23, BUN 40, creatinine 1.3, calcium 7.3. ABG; pH 7.51, CO2 27, O2 97, base excess -1. Urinalysis; specific gravity 1.015, sodium less than 15, potassium 35. Renal ultrasound; 10.7/10.8, bilateral cysts. CK 903. Assessment And Plan: 1. Acute kidney injury, normal-sized kidney, nonproteinuric, secondary to prerenal, superimposed with hydrochlorothiazide and PETTY inhibitor and low blood pressure. Looked to me, blood pressure still on the lower side. I am going to continue IV fluid and we will monitor the patient. Obstructive uropathy has been ruled out. Discontinue all blood pressure medications, especially PETTY inhibitor and hydrochlorothiazide. 2. Hyponatremia, depletional, supported with level of urine sodium, appropriate rise on the sodium 8 point in the last 15 hours. I am going to continue current IV fluid and we will monitor. 3. Contraction alkalosis. Continue IV fluid. We will monitor. 4. Hypokalemia. I am going to go ahead and supplement. We will go ahead and check for the magnesium level. 5. Rhabdomyolysis with the presence of acute kidney injury. Continue IV hydration. 6. Hip fracture. Follow up with Ortho. I think the patient is going to need another 24-hour before we attempt any general anesthesia if needing for the surgery till we improve the sodium above 125. Thank you, Dr. Duke for allowing us to participate in the care of your patient. time spend exam the patient face to face , reviewing data lab and radiology placing order , discussing with grupo member nursing and hospitalist >65 min REINALDO Voice ID: [id number] Report ID: [id number]
[2022-04-07] MEDS ORDERED: POTASSIUM 25 MEQ EFFERV TAB ONE (13:15)
[2022-04-07 15:11] LABS: Potassium 3.9 mmol/L (3.5-5.1)
[2022-04-07] MEDS ORDERED: VANCOMYCIN 1.25 GM in NA CHLORIDE 0.9% 250 ML IVPB SCH (16:00)
[2022-04-07 18:31] LABS: Potassium 3.1 mmol/L (3.5-5.1)
--- NOTE | 2022-04-07 21:45 | P.PN ---
Date of Service: 04/07/22 Subjective: feeling better, alert/oriented x3 minimal pain at rest breathing comfortably ROS: A complete review of systems was performed and is negative except as mentioned above Physical Exam: Gen: NAD, AOx3 HEENT: normal conjunctiva, sclera anicteric CV: regular rate & rhythm, no edema Pulm: non-labored respirations, clear bilaterally Abd: soft, non-tender, non-distended MSK: RLE externally rotated Skin: no rashes, no lesions Neuro: normal speech, normal affect, moves all extremities vitals reviewed Problem List Severe hypovolemic hyponatremia Right intertrochanteric femur fracture Hypokalemia Rhabdomyolysis Leukocytosis, lactic acidosis Hypertension Previous aortic aneurysm [id number] hyponatremia, severe secondary to hypovolemia, patient with minimal PO intake improving with IV hydration QUINN secondary to prerenal, superimposed with HCTZ/ACEI and low blood pressur rhabdomyolysis mild CPK elevation; improving with IVF hip fracture, s/p fall discussed with ortho, recommend waiting for Na >125 prior to surgery possibly by tomorrow continue q4h bmp ok to downgrade to tele bed Code: full Dispo: home, home health / PT likely; ~2-3 days
[2022-04-07 23:10] LABS: Potassium 3.7 mmol/L (3.5-5.1)
[2022-04-08] MEDS: NA CHLORIDE 0.9% 1,000 ML IV SCH ×4 (00:20→22:47)
[2022-04-08 02:53] LABS: Absolute Lymphocytes (CBC) 0.5 K/uL (0.7-4.9); Hematocrit 21.2 % (39.6-49.0); MCV 85.2 fL (80-100); MPV 8.8 fL (7.6-11.3); RBC Red Blood Cell Count 2.49 M/uL (4.33-5.43)
[2022-04-08 03:12] LABS: Magnesium 2.1 mg/dL (1.6-2.4); Potassium 3.4 mmol/L (3.5-5.1)
[2022-04-08] MEDS: KCL 20 MEQ/100 mL IVPB 20 MEQ/100 ML BAG IV SCH ×2 (03:58→06:08)
[2022-04-08] MEDS ORDERED: NA CHLORIDE 0.9% 250 ML IV SCH (07:00)
[2022-04-08 08:17] LABS: RBC Red Blood Cell Count 2.54 M/uL (4.33-5.43)
[2022-04-08] MEDS ORDERED: CEFAZOLIN SODIUM 1 GM/VIAL ONE (08:56)
[2022-04-08] MEDS: Ringers Lactate 0 ML IV ONE ×2 (08:56→09:12)
[2022-04-08] MEDS: VANCOMYCIN 1.25 GM in NA CHLORIDE 0.9% 250 ML IVPB SCH ×2 (09:00→20:56)
[2022-04-08] MEDS ORDERED: TRANEXAMIC ACID 1,000 MG/10 ML VIAL IV ONE (09:05)
[2022-04-08] MEDS ORDERED: FENTANYL CITR 100 MCG/2 ML ONE (09:07)
[2022-04-08] MEDS ORDERED: LIDOCAINE 2% MPF 5 ML VIAL ONE (09:07)
[2022-04-08] MEDS ORDERED: propofoL 200 MG/20 ML VIAL IV ONE (09:07)
[2022-04-08] MEDS ORDERED: ROCURONIUM 50 MG/5 ML VIAL IV ONE (09:07)
[2022-04-08] MEDS ORDERED: ONDANSETRON 4 MG/2 ML VIAL ONE (09:07)
[2022-04-08] MEDS ORDERED: dexAMETHasone 10 MG/ML VIAL ONE (10:17)
[2022-04-08] MEDS ORDERED: EPINEPHRINE/PF 1 MG/ML AMP ONE (10:18)
[2022-04-08] MEDS ORDERED: BUPIVACAINE 0.25% PF 10 ML VIAL ONE (10:18)
[2022-04-08] MEDS: LIDOCAINE 1% W/EPI 1:100,000 50 ML MDV ONE ×2 (10:38→11:06)
[2022-04-08] MEDS ORDERED: NA CHLORIDE 0.9% 1,000 ML ONE ×2 (11:01→11:36)
--- NOTE | 2022-04-08 11:41 | P.BOP ---
Preoperative diagnosis: right intertrochanteric femur fracture Postoperative diagnosis: same Primary procedure: cephallomedullary fixation of right intertrochanteric femur fracture [employer] Roller: NONE,NONE Estimated blood loss: 100 cc Specimen: none Findings: see dictation Anesthesia: General Complications: None Drain(s): Urinary catheter Implants: 13 x 180 mm 130 degree Biomet Affixus nail; 105 mm lag screw Fluids & blood products: per anesthesia record Transferred to: Recovery Room Condition: Good
[2022-04-08] MEDS ORDERED: TRAMADOL HCL 50 MG TAB PO PRN (11:54)
[2022-04-08] MEDS ORDERED: HYDROCODONE/APAP 7.5/325 MG TAB PO PRN (11:54)
[2022-04-08] MEDS ORDERED: CEFAZOLIN 1 GM in NA CHLORIDE 0.9% 50 ML IVPB SCH (12:00)
[2022-04-08 12:31] LABS: Hematocrit 21.4 % (39.6-49.0)
--- NOTE | 2022-04-08 12:42 | RAD REPORT ---
EXAM DESCRIPTION: RAD - Hip Right 2 View - 04/08/2022 12:22 pm CLINICAL HISTORY: postop COMPARISON: Hip Right 2 View dated 04/06/2022 FINDINGS: Intramedullary malinda in the right occipital femur. Cephalomedullary screws. Subcutaneous sta ples noted. IMPRESSION: Status post right hip ORIF without evidence of hardware complications.
--- NOTE | 2022-04-08 13:06 | RAD REPORT ---
EXAM DESCRIPTION: - Hip in OR Right 1 View - 04/08/2022 12:02 pm CLINICAL HISTORY: RIGHT RODDING COMPARISON: No comparisons FINDINGS/IMPRESSION: Twenty-five intraoperative fluoroscopic images were submitted demonstrating SHUBHAM F of intertrochanteric right hip fracture with intramedullary malinda and cephalomedullary screws. Fluoro time: 1 minutes Cumulative dose: 9.1 mGy.
--- NOTE | 2022-04-08 13:11 | P.PN ---
Subjective Date of Service: 04/08/22 Chief Complaint: Right hip fracture, hyponatremia Subjective: No new changes Physical Examination - Vital Signs Temperature: 97.7 F Blood Pressure: 129/67 Pulse: 92 Respirations: 16 Pulse Ox (%): 97 - Physical Exam General: Other (appears as his stated age) HEENT: Atraumatic, Normocephalic Neck: Supple, JVD not distended Respiratory: Other (symmetric chest expansion) Cardiovascular: No rubs, No murmurs Gastrointestinal: Soft and benign, No guarding Musculoskeletal: No clubbing Integumentary: No warmth Neurological: Normal tone Urinary: Other (no bladder distention) External genitalia: Deferred Rectal: Deferred - Studies Microbiology Data (last 24 hrs): 04/06/22 19:30 Blood - Blood Blood Culture Gram Stain - Final 04/06/22 19:30 Blood - Blood Gram Stain - Final Assessment And Plan - Plan 1. Acute kidney injury, normal-sized kidney, nonproteinuric, secondary to p rerenal, superimposed with hydrochlorothiazide and PETTY inhibitor and low blood pressure. Improved. IV hydration as below. 2. Hyponatremia, depletional + HCTZ use. improving. Serum sodium improved to 1.6. Continue NS drip 125 cc/h. Start sodium chloride tablets 2 g by mouth 3 times a day. KCl repletion when necessary to keep serum K at 4.0 higher. Avoid hypomagnesemia. advised on adequate by mouth solid food intake at least half a plate per meal 3 times a day. 3. Hypokalemia. KCl 40 mg IV repletion today. 4. Anemia. Monitor CBC. 5. Contraction alkalosis. Continue IV fluid. We will monitor. 6. Rhabdomyolysis with the presence of acute kidney injury. Continue IV hydration. 7. R hip fracture. Per ortho service.
--- NOTE | 2022-04-08 13:21 | CON ---
Date of Consultation: 04/07/2022 Reason For Consultation: Right hip pain. History Of Present Illness: Mr. Fraga is a 67-year-old male who presented to the ER after sustainin g a fall onto his right side. Patient was feeling weak and had had a recent history of COVID infecti on. He was brought to the emergency room, had x-rays of the right hip, which demonstrated a right in tertrochanteric femur fracture. He was also noted to have hyponatremia as well as the renal insuffic iency. Nephrology was consulted. Patient received IV fluids and his hyponatremia has been corrected . Reports pain in the right hip at this time. He is nonambulatory. Review of Systems: As above, otherwise negative. Past Medical History: Includes hypertension. Past Surgical History: Includes aortic aneurysm repair. Medications: Per medication reconciliation form. Allergies: NO KNOWN DRUG ALLERGIES. Physical Examination: General: No apparent distress. HEENT: Normocephalic, atraumatic. Neck: Supple. Cardiovascular: Brisk cap refill to all digits. Chest: Nonlabored breathing. Abdomen: Nondistended. Psychiatric: Responsive to exam. Musculoskeletal: Right lower extremity pain. Range of motion to right hip, tenderness to palpation right hip. Neurovascularly intact distally. Left lower extremity functional range of motion without pain. No gross deformities. No obvious dislocations. Bilateral upper extremities functional range of motion without pain. No gross deformities. No obvious dislocations. Diagnostic Studies: X-rays in the right hip demonstrate a right intertrochanteric femur fracture. Assessment And Plan: Mr. Fraga is a 67-year-old male with a right intertrochanteric femur fracture. I discussed with the patient at length, risks, benefits associated with operative and nonoperative treatment given the fracture pattern. Recommend surgical fixation with intramedullary malinda and screw. Risks and benefits associated with the procedure were discussed with the patient, who expressed und erstanding. Patient will need to have hyponatremia improved prior to operative surgery and we will p roceed when medically stable. CV/MODL Voice ID: [id number] Report ID: [id number]
[2022-04-08] MEDS: CEFAZOLIN 1 GM in NA CHLORIDE 0.9% 50 ML IVPB SCH ×2 (14:49→20:55)
[2022-04-08] MEDS ORDERED: NA CHLORIDE 0.9% 250 ML ONE (15:41)
--- NOTE | 2022-04-08 17:13 | P.PN ---
Date of Service: 04/08/22 Subjective: no acute events overnight pain tolerable waiting for surgery today sodium improved hgb down; denies bleed, no prior bleeding problems ROS: A complete review of systems was performed and is negative except as mentioned above Physical Exam: Gen: NAD, AOx3 HEENT: normal conjunctiva, sclera anicteric CV: regular rate & rhythm, no edema Pulm: non-labored respirations, clear bilaterally Abd: soft, non-tender, non-distended MSK: RLE externally rotated Neuro: normal speech, normal affect, moves all extremities vitals reviewed Problem List Severe hypovolemic hyponatremia Right intertrochanteric femur fracture Hypokalemia Rhabdomyolysis Leukocytosis, lactic acidosis Hypertension Previous aortic aneurysm [id number] hyponatremia, severe secondary to hypovolemia, patient with minimal PO intake improving with IV hydration QUINN secondary to prerenal, superimposed with HCTZ/ACEI and low blood pressure improving rhabdomyolysis mild CPK elevation; improving with IVF hip fracture, s/p fall discussed with ortho OR today, sodium improved hgb down to mid 7s, 1uPRBC ordered. Ortho discussed with anesthesia - will transfuse post-op Code: full Dispo: home, home health / PT likely; ~2-3 days
[2022-04-08] MEDS: ENSURE SURGERY 237 ML CAN PO SCH (21:00)
[2022-04-08] MEDS ORDERED: ENSURE SURGERY 237 ML CAN PO SCH (21:00)
--- NOTE | 2022-04-09 01:20 | OP ---
Date of Procedure: 04/08/2022 Surgeon: Ruben Whitney MD Preoperative Diagnosis: Right intertrochanteric femur fracture. Postoperative Diagnosis: Right intertrochanteric femur fracture. Procedure Performed: Cephalomedullary fixation of right intertrochanteric femur fracture. Anesthesia: General LMA. Fluids: Per Anesthesia record. Ebl: 100 cc. Complications: None. Implants: A 13 x 180 mm, 130 degree Biomet AFFIXUS nail, 105 mm lag screw with a 90 mm anti-rotational screw. Indication For Procedure: Bob is a 67-year-old male who presented to the emergency room after sustaining a fall with subsequent pain in that right hip. He was seen and had x-rays, which demonstrated right intertrochanteric femur fracture. The patient was also noted to have hyponatremia. The sex offender treatment professional with hospitalist service has been working in and flask fitter has been working on getting the hyponatremia corrected and it is now in a more stable condition. I did discuss with the patient risks and benefits associated with operative and nonoperative treatment. He expressed understanding and he elected to proceed with operative treatment. Description Of Procedure: After informed consent was obtained, the patient was identified in the preoperative holding area. The right lower extremity was marked. The patient was brought back to the operating room, transferred to the operative table in supine fashion, placed under general LMA anesthesia. He was placed on the fracture table. Extremities were well padded. The right lower extremity was manipulated and under fluoroscopic guidance post reduction was obtained. The right lower extremity was then prepped and draped in usual sterile fashion. A time-out was initiated. The correct patient and procedure confirmed and identified. The patient then received preoperative prophylactic antibiotics. Approximately, a 5 cm longitudinal incision was made just proximal to greater trochanter. Dissection was taken down to the tensor fascia elke. The hip abductors and greater trochanter was found and guide pin was placed in the tip of the greater trochanter, down debrided from the proximal femur in antegrade fashion. This was placed in center of the femoral canal confirmed using fluoroscopy. An entry reamer was then placed over the guide pin and a long ball-tipped guidewire was placed down the femoral canal. The proximal femur was then reamed starting with a 9 mm reamer increased in 0.5 mm increments to a size of 14.5 mm reamer. At 13 mm, nail was selected at 130 degrees after measuring that angle on the postreduction films. The implant was then placed over a guidewire and into proper position. The guidewire was then removed and a second incision was made over the lateral thigh and the guide pin was placed in center-center position of the femoral head and neck confirmed using fluoroscopy, which measured 105 mm in length. 105 mm lag screw was placed in a compression mode after placing the antirotation pin to minimize rotation of the fracture. The fracture was then compressed using the jig and lag screw was locked into position. A 90 mm anti-rotational screw was placed again to control rotation. A final interlocking screw was placed in the distal point of the implant using the jig in bicortical fashion. The jig was then removed. Wounds were then irrigated thoroughly with normal saline. Final x-rays were taken confirming overall adequate reduction of the fracture as well as proper placement of the hardware. Deep tissue and the fascia were approximated using 0 Vicryl, subcutaneous tissue was approximated using 2-0 Vicryl, skin was approximated using kalpana. Sterile dressings were applied. The patient was awakened and transferred to PACU in stable condition. Postoperative Plan: The patient maybe weightbearing as tolerated. Kalpana will be able to be removed in 2 weeks. PT will be consulted to aid with mobilization. JEFRY/MODL Voice ID: [id number] Report ID: [id number] JUAN MANUEL
[2022-04-09] MEDS: CEFAZOLIN 1 GM in NA CHLORIDE 0.9% 50 ML IVPB SCH (04:02)
[2022-04-09 04:35] VITALS: BMI 22.6
[2022-04-09 04:47] LABS: Absolute Lymphocytes (CBC) 0.3 K/uL (0.7-4.9); Hematocrit 21.2 % (39.6-49.0); Lymphocytes % 3.3 % (15.3-44.8); MCV 88.2 fL (80-100); MPV 9.1 fL (7.6-11.3)
[2022-04-09 05:06] LABS: Magnesium 1.9 mg/dL (1.6-2.4); Potassium 3.6 mmol/L (3.5-5.1)
[2022-04-09 06:33] LABS: Specific Gravity 1.018 (1.005-1.030); Transitional Epithelial <5 /HPF (None Seen); Urine Bacteria None Seen /HPF (<20); Urine Bilirubin NEGATIVE (Negative); Urine Blood Trace (Negative); Urine Clarity Clear (Clear); Urine Color Light-Yellow (Yellow); Urine Glucose NEGATIVE (Negative); Urine Mucus Slight /HPF (None Seen); Urine Protein TRACE (Negative); Urine RBC <5 /HPF (None Seen); Urine Urobilinogen Normal (Normal)
--- NOTE | 2022-04-09 06:41 | P.PN ---
Date of Service: 04/09/22 Subjective: no acute events overnight pain tolerable dizzy/lightheaded today working with PT denies bleeding appetite good, +Flatus, no BM ROS: A complete review of systems was performed and is negative except as mentioned above Physical Exam: Gen: NAD, AOx3 HEENT: normal conjunctiva, sclera anicteric CV: regular rate & rhythm, no edema Pulm: non-labored respirations, clear bilaterally Abd: soft, non-tender, non-distended MSK: surgical dressing in place Neuro: normal speech, normal affect, moves all extremities vitals reviewed [place] in place Problem List Severe hypovolemic hyponatremia Right intertrochanteric femur fracture Hypokalemia Rhabdomyolysis Leukocytosis, lactic acidosis Hypertension Previous aortic aneurysm [id number] acute on chronic anemia, blood loss hyponatremia, severe QUINN secondary to prerenal, superimposed with HCTZ/ACEI and low blood pressure secondary to hypovolemia, patient with minimal PO intake prior to admission improving with IV hydration continue to monitor nephrology following CONS+ in blood contaminant afebrile, no source of infection, dc'd empiric vanc on 04/08 acute on chronic anemia, blood loss from fracture and surgery s/p 1uPRBC on 04/08 after surgery (Anesthesia held) recheck hgb/hct this afternoon rhabdomyolysis mild CPK elevation; improving with IVF hip fracture, s/p fall s/p OR fixation on 04/08 Code: full Dispo: home, home health / PT likely; ~2 days
[2022-04-09] MEDS: NA CHLORIDE 0.9% 1,000 ML IV SCH ×4 (06:47→22:47)
[2022-04-09] MEDS: SODIUM CHLORIDE 1 GM TAB PO SCH ×3 (08:48→17:21)
[2022-04-09] MEDS: SOD FERRIC GLUC COMPLX/SUCROSE 125 MG in NA CHLORIDE 0.9% 100 ML IV SCH (08:48)
[2022-04-09] MEDS: ENOXAPARIN 40 MG/0.4 ML SQ SCH (08:48)
[2022-04-09] MEDS: ENSURE SURGERY 237 ML CAN PO SCH ×2 (08:49→20:59)
[2022-04-09] MEDS ORDERED: POTASSIUM 25 MEQ EFFERV TAB PO ONE (09:00)
--- NOTE | 2022-04-09 15:42 | P.PN ---
Subjective Date of Service: 04/09/22 Chief Complaint: Right hip fracture, hyponatremia Subjective: No new changes Physical Examination - Vital Signs Temperature: 99.2 F Blood Pressure: 124/69 Pulse: 82 Respirations: 16 Pulse Ox (%): 94 - Physical Exam General: In no apparent distress HEENT: Atraumatic, Normocephalic Neck: Supple, JVD not distended Respiratory: Other (symmetric chest expansion) Cardiovascular: No rubs, No murmurs Gastrointestinal: Soft and benign, No guarding Musculoskeletal: No clubbing Integumentary: No warmth Neurological: Normal speech, Normal tone Urinary: Other (no bladder distention) External genitalia: Deferred Rectal: Deferred - Studies Microbiology Data (last 24 hrs): 04/06/22 19:30 Blood - Blood Blood Culture Gram Stain - Final 04/06/22 19:30 Blood - Blood Gram Stain - Final Assessment And Plan - Plan 1. Acute kidney injury, normal-sized kidney, nonproteinuric, secondary to prerenal, superimposed by hydrochlorothiazide and PETTY inhibitor and low blood pressure. Improved. IV hydration as below. Encourage po fluid intake. 2. Hyponatremia, depletional + HCTZ use. improving. Serum sodium improved to 127. Continue NS drip 125 cc/h. Cont sodium chloride tablets 2 g by mouth 3 times a day. KCl repletion when necessary to keep serum K at 4.0 higher. Avoid hypomagnesemia. advised on adequate by mouth solid food intake at least half a plate per meal 3 times a day. 3. Hypokalemia. KCl repletion prn. 4. Anemia. Monitor CBC. 5. Contraction alkalosis. Continue IV fluid. We will monitor. 6. Rhabdomyolysis with the presence of acute kidney injury. Continue IV hydration. 7. R hip fracture. Per ortho service.
[2022-04-09 16:14] LABS: Hematocrit 19.4 % (39.6-49.0)
[2022-04-09] MEDS ORDERED: NA CHLORIDE 0.9% 250 ML IV SCH (17:00)
[2022-04-10] MEDS: NA CHLORIDE 0.9% 1,000 ML IV SCH ×6 (02:05→22:47)
[2022-04-10 04:14] LABS: Hematocrit 23.5 % (39.6-49.0); MCV 87.1 fL (80-100); MPV 8.2 fL (7.6-11.3)
[2022-04-10 04:36] LABS: Magnesium 1.7 mg/dL (1.6-2.4); Potassium 3.1 mmol/L (3.5-5.1)
--- NOTE | 2022-04-10 06:57 | P.PN ---
Date of Service: 04/10/22 Subjective: feeling better no acute events overnight tolerating diet, passing flatus, no BM pain tolerable s/p 2nd unit of blood ROS: A complete review of systems was performed and is negative except as mentioned above Physical Exam: Gen: NAD, AOx3 HEENT: normal conjunctiva, sclera anicteric CV: regular rate & rhythm, no edema Pulm: non-labored respirations, clear bilaterally Abd: soft, non-tender, non-distended Integumentary: large ecchymosis left flank Neuro: normal speech, normal affect, moves all extremities vitals reviewed [place] in place Problem List Severe hypovolemic hyponatremia Right intertrochanteric femur fracture Hypokalemia Rhabdomyolysis Leukocytosis, lactic acidosis Hypertension Previous aortic aneurysm [id number] acute on chronic anemia, blood loss hyponatremia, severe QUINN secondary to prerenal, superimposed with HCTZ/ACEI and low blood pressure secondary to hypovolemia, patient with minimal PO intake prior to admission improving with IV hydration continue to monitor nephrology following CONS+ in blood contaminant afebrile, no source of infection, dc'd empiric vanc on 04/08 remains afebrile acute on chronic anemia, blood loss from fracture and surgery large ecchymosis on left flank s/p 1uPRBC on 04/08 after surgery (Anesthesia held) 2nd uPRBC given 04/09 evening stable no active bleed rhabdomyolysis from fall mild CPK elevation; improving with IVF hip fracture, s/p fall s/p OR fixation on 04/08 Code: full Dispo: rehab eval evaluated by PT, recommend rehab rehab consulted
[2022-04-10] MEDS ORDERED: POTASSIUM 25 MEQ EFFERV TAB PO ONE (07:00)
[2022-04-10] MEDS ORDERED: MAGNESIUM SULFATE 1 gm IVPB 1 GM/100 ML BAG IV ONE (07:00)
[2022-04-10] MEDS: ENSURE SURGERY 237 ML CAN PO SCH ×2 (09:00→20:16)
[2022-04-10] MEDS: SOD FERRIC GLUC COMPLX/SUCROSE 125 MG in NA CHLORIDE 0.9% 100 ML IV SCH (09:17)
[2022-04-10] MEDS: ENOXAPARIN 40 MG/0.4 ML SQ SCH (09:17)
[2022-04-10] MEDS: SODIUM CHLORIDE 1 GM TAB PO SCH ×3 (09:17→16:58)
[2022-04-10] MEDS: DOCUSATE NA 100 MG CAP PO SCH ×2 (11:29→20:16)
--- NOTE | 2022-04-10 15:43 | P.PN ---
Subjective Date of Service: 04/10/22 Chief Complaint: Right hip fracture, hyponatremia Subjective: No new changes Physical Examination - Vital Signs Temperature: 97.9 F Blood Pressure: 139/75 Pulse: 68 Respirations: 16 Pulse Ox (%): 98 - Physical Exam General: Other (appears as stated age) HEENT: Atraumatic, Normocephalic Neck: Supple Respiratory: Other (symmetric chest expansion) Cardiovascular: No rubs, No murmurs Gastrointestinal: Soft and benign, No guarding Musculoskeletal: No clubbing Integumentary: No warmth Neurological: Normal speech, Normal tone Urinary: Other (no bladder distention) External genitalia: Deferred Rectal: Deferred - Studies Microbiology Data (last 24 hrs): 04/06/22 19:30 Blood - Blood Aerobic Blood Culture - Final 04/06/22 19:30 Blood - Blood Blood Culture Gram Stain - Final 04/06/22 19:30 Blood - Blood Anaerobic Blood Culture - Final 04/06/22 19:30 Blood - Blood Gram Stain - Final Assessment And Plan - Plan 1. Acute kidney injury, normal-sized kidney, nonproteinuric, secondary to prerenal, superimposed by hydrochlorothiazide and PETTY inhibitor and low blood p ressure. Resolved. IV hydration as below. Encourage po fluid intake. 2. Hyponatremia, depletional + HCTZ use. improving. Serum sodium improved to 130. Continue NS drip 125 cc/h. Cont sodium chloride tablets 2 g by mouth 3 times a day. KCl repletion when necessary to keep serum K at 4.0 higher. Avoid hypomagnesemia. advised on adequate by mouth solid food intake at least half a plate per meal 3 times a day. 3. Hypokalemia. KCl repletion prn. 4. Anemia. Monitor CBC. 5. Contraction alkalosis. Continue IV fluid. We will monitor. 6. Rhabdomyolysis with the presence of acute kidney injury. Continue IV hydration. 7. R hip fracture. Per ortho service.
[2022-04-10] MEDS ORDERED: POTASSIUM CL SA 10 MEQ TAB PO ONE (16:00)
[2022-04-10] MEDS: KCL 20 MEQ/100 mL IVPB 20 MEQ/100 ML BAG IV SCH (22:46)
[2022-04-11] MEDS: KCL 20 MEQ/100 mL IVPB 20 MEQ/100 ML BAG IV SCH (00:46)
[2022-04-11] MEDS: NA CHLORIDE 0.9% 1,000 ML IV SCH ×4 (01:02→21:27)
[2022-04-11 06:35] LABS: Magnesium 1.7 mg/dL (1.6-2.4); Potassium 3.3 mmol/L (3.5-5.1)
[2022-04-11 06:37] LABS: Hematocrit 23.7 % (39.6-49.0); MCV 87.6 fL (80-100); MPV 8.6 fL (7.6-11.3)
[2022-04-11] MEDS ORDERED: MAGNESIUM SULFATE 1 gm IVPB 1 GM/100 ML BAG IV ONE (08:00)
--- NOTE | 2022-04-11 08:12 | P.PN ---
Subjective Date of Service: 04/11/22 Chief Complaint: s/p right hip nail Subjective: Working w/ PT pain controlled Physical Examination - Vital Signs Temperature: 97.9 F Blood Pressure: 139/75 Pulse: 68 Respirations: 16 Pulse Ox (%): 98 - Physical Exam General: Alert, In no apparent distress Musculoskeletal: Other (RLE: dressing with light sanguinous drainage; no erythema; NVI distally) - Studies Microbiology Data (last 24 hrs): 04/06/22 19:30 Blood - Blood Aerobic Blood Culture - Final 04/06/22 19:30 Blood - Blood Blood Culture Gram Stain - Final 04/06/22 19:30 Blood - Blood Anaerobic Blood Culture - Final 04/06/22 19:30 Blood - Blood Gram Stain - Final Assessment And Plan - Plan Bob is a 67-year-old male status post right hip nail POD# 3 -PT to mobilize; WBAT RLE -acute expected postoperative blood loss anemia on chronic anemia; continue to monitor -DVT prophylaxis with lovenox -await IPR eval/approval
[2022-04-11] MEDS: SODIUM CHLORIDE 1 GM TAB PO SCH ×3 (08:48→16:10)
[2022-04-11] MEDS: DOCUSATE NA 100 MG CAP PO SCH ×2 (08:48→21:28)
[2022-04-11] MEDS: ENOXAPARIN 40 MG/0.4 ML SQ SCH (08:48)
[2022-04-11] MEDS: ENSURE SURGERY 237 ML CAN PO SCH ×2 (08:56→21:00)
[2022-04-11] MEDS: SOD FERRIC GLUC COMPLX/SUCROSE 125 MG in NA CHLORIDE 0.9% 100 ML IV SCH (09:14)
[2022-04-11] MEDS ORDERED: POTASSIUM CL SA 10 MEQ TAB PO ONE (21:00)
--- NOTE | 2022-04-11 21:24 | P.PN ---
Date of Service: 04/11/22 Subjective: feeling better no acute events overnight tolerating diet, passing flatus, no BM denies bleeding ROS: A complete review of systems was performed and is negative except as mentioned above Physical Exam: Gen: NAD, AOx3 HEENT: normal conjunctiva, sclera anicteric CV: regular rate & rhythm, no edema Pulm: non-labored respirations, clear bilaterally Abd: soft, non-tender, non-distended Integumentary: large ecchymosis left flank Neuro: normal speech, normal affect, moves all extremities vitals reviewed [place] in place Problem List Severe hypovolemic hyponatremia Right intertrochanteric femur fracture Hypokalemia Rhabdomyolysis Leukocytosis, lactic acidosis Hypertension Previous aortic aneurysm [id number] acute on chronic anemia, blood loss; with iron deficiency hyponatremia, severe QUINN secondary to prerenal, superimposed with HCTZ/ACEI and low blood pressure secondary to hypovolemia, patient with minimal PO intake prior to admission improving with NS; wean continue to monitor nephrology following CONS+ in blood contaminant afebrile, no source of infection, dc'd empiric vanc on 04/08 remains afebrile acute on chronic anemia, blood loss; with iron deficiency from fracture and surgery; and large ecchymosis on left flank from fall s/p 1uPRBC on 04/08 after surgery (Anesthesia held) 2nd uPRBC given 04/09 evening stable no active bleed iv iron rhabdomyolysis from fall mild CPK elevation; improving with IVF hip fracture, s/p fall s/p OR fixation on 04/08 Code: full Dispo: evaluated by PT, recommend rehab rehab consulted
[2022-04-12 03:49] LABS: Hematocrit 22.6 % (39.6-49.0); MCV 95.3 fL (80-100); MPV 8.4 fL (7.6-11.3); RBC Red Blood Cell Count 2.38 M/uL (4.33-5.43)
[2022-04-12 03:54] LABS: Magnesium 1.7 mg/dL (1.6-2.4); Potassium 3.3 mmol/L (3.5-5.1)
--- NOTE | 2022-04-12 04:11 | PN ---
Chief Complaint: Hyponatremia, right hip fracture. Subjective: The patient was admitted to the hospital and was found to have severe hyponatremia and a cute kidney injury secondary to prerenal azotemia. Hyponatremia was multifactorial due to hydrochlor othiazide and volume depletion. Sodium level has improved over the last few days. The patient on pr esentation to the hospital had a sodium level of 120 and renal function has been checked and is impro ving. The prerenal azotemia had resolved, although hyponatremia was treated over last several days a nd today his sodium is 131. Hypokalemia was treated today and potassium level improved primarily fro m 3.1 to 3.3, although this evening potassium level remained low at 3.0. Review of Systems: The patient denies fever, chills. Physical Examination: Lungs: Clear to auscultation bilaterally. Heart: S1, S2. Abdomen: Soft. Extremities: No edema. Impression And Plan: 1.Hyponatremia, hyperosmolar. Continue to monitor electrolytes. The patient completed normal salin e. 2.Hypokalemia. Replacement was ordered. Monitor magnesium and phosphorus level. 3.Elevated CK. Monitor CK level. Rule out rhabdomyolysis. EB/MODL Voice ID: [id number] Report ID: [id number]
[2022-04-12] MEDS ORDERED: POTASSIUM CL SA 10 MEQ TAB PO ONE ×3 (05:00→21:00)
[2022-04-12] MEDS: SODIUM CHLORIDE 1 GM TAB PO SCH ×3 (08:43→16:17)
[2022-04-12] MEDS: ENOXAPARIN 40 MG/0.4 ML SQ SCH (08:43)
[2022-04-12] MEDS: DOCUSATE NA 100 MG CAP PO SCH ×2 (08:44→22:21)
[2022-04-12] MEDS: ENSURE SURGERY 237 ML CAN PO SCH ×2 (08:45→21:00)
[2022-04-12] MEDS: SOD FERRIC GLUC COMPLX/SUCROSE 125 MG in NA CHLORIDE 0.9% 100 ML IV SCH (08:57)
[2022-04-12] MEDS: NA CHLORIDE 0.9% 1,000 ML IV SCH (11:01)
--- NOTE | 2022-04-12 14:50 | P.PN ---
Subjective Date of Service: 04/12/22 Chief Complaint: s/p right hip nail Pt admitted for hyponatremia and hypokalemia today Na and K cont to improve plan to discharge today cleared for discharge from nephrology point of view encouraged to increased po food intake Physical exam General: Awake, NAD , thin HEENT: Atraumatic, Normocephalic Neck: Supple, no elevated JVD Respiratory: rt basal rales Cardiovascular: No rubs, No murmurs Gastrointestinal: Soft and benign, Non-distended Musculoskeletal: No clubbing Integumentary: No warmth Neurological: Normal tone, Sensation intact Lymphatics: No axilla or inguinal lymphadenopathy Urinary: Other (no bladder distention) 1. Acute kidney injury, normal-sized kidney, nonproteinuric, secondary to prerenal, superimposed by hydrochlorothiazide and PETTY inhibitor and low blood pressure. Resolved. IV hydration as below. Encourage po fluid intake. 2. Hyponatremia, depletional + HCTZ use. improving. Serum sodium improved to 132. Cont sodium chloride tablets 2 g by mouth 3 times a day. KCl repletion when necessary Avoid hypomagnesemia. advised on adequate by mouth solid food intake at least half a plate per meal 3 times a day. 3. Hypokalemia. KCl repletion prn. 4. Anemia. Monitor CBC. 5. Contraction alkalosis. Continue IV fluid. We will monitor. 6. Rhabdomyolysis with the presence of acute kidney injury. Continue IV hydration. 7. R hip fracture. Per ortho service. Physical Examination - Vital Signs Temperature: 97.7 F Blood Pressure: 123/82 Pulse: 83 Respirations: 20 Pulse Ox (%): 100
--- NOTE | 2022-04-12 15:07 | P.PN ---
Subjective Date of Service: 04/12/22 Chief Complaint: s/p right hip nail Subjective: Ambulating, Working w/ PT pain controlled Physical Examination - Vital Signs Temperature: 97.7 F Blood Pressure: 123/82 Pulse: 83 Respirations: 20 Pulse Ox (%): 100 - Physical Exam General: Alert, In no apparent distress Musculoskeletal: Other (RLE: dressing with mild sanguinous drainage; NVI distally) Assessment And Plan - Plan Bob is a 67-year-old male status post right hip nail POD# 4 -PT to mobilize; WBAT RLE -acute expected postoperative blood loss anemia on chronic anemia; continue to monitor -DVT prophylaxis with lovenox -denied for inpatient rehab by insurance; await placement
--- NOTE | 2022-04-12 19:11 | P.PN ---
Subjective Date of Service: 04/12/22 Chief Complaint: s/p right hip nail Patient has no new complaint. She has been ambulating with physical therapy with a walker and contact-guard assist-about 100 feet today. Physical Examination - Vital Signs Temperature: 97.7 F Blood Pressure: 135/76 Pulse: 79 Respirations: 16 Pulse Ox (%): 100 Assessment And Plan - Plan Physical Exam: Gen: NAD, AOx3 HEENT: normal conjunctiva, sclera anicteric CV: regular rate & rhythm, no edema Pulm: non-labored respirations, clear bilaterally Abd: soft, non-tender, non-distended Integumentary: Ecchymosis left flank Neuro: normal speech, no focal motor deficit. vitals reviewed Problem List Severe hypovolemic hyponatremia Right intertrochanteric femur fracture Hypokalemia Rhabdomyolysis Leukocytosis, lactic acidosis Hypertension Previous aortic aneurysm [id number] acute on chronic anemia, blood loss; with iron deficiency hyponatremia, severe QUINN secondary to prerenal, secondary to hypovolemia, patient with minimal PO intake prior to admission Was also on diuretics. QUINN resolved. Hyponatremia improved. continue to monitor BMP. nephrology following CONS+ in blood Likely skin contaminant afebrile, no source of infection, empiric vancomycin discontinued. remains afebrile acute on chronic anemia, blood loss; with iron deficiency Status post 2 unit PRBC Hemoglobin has been stable around 8. no active bleed Continue iv iron rhabdomyolysis from fall CK level improved hip fracture, s/p fall s/p OR fixation on 04/08 Continue PT Patient slated for skilled rehab placement. Code: full
[2022-04-13 04:18] LABS: Absolute Lymphocytes (CBC) 1.5 K/uL (0.7-4.9); Hematocrit 24.1 % (39.6-49.0); Lymphocytes % 16.8 % (15.3-44.8); RBC Red Blood Cell Count 2.62 M/uL (4.33-5.43)
[2022-04-13] MEDS: SODIUM CHLORIDE 1 GM TAB PO SCH ×3 (08:20→16:33)
[2022-04-13] MEDS: ENSURE SURGERY 237 ML CAN PO SCH ×2 (08:20→21:00)
[2022-04-13] MEDS: DOCUSATE NA 100 MG CAP PO SCH ×2 (08:20→21:41)
[2022-04-13] MEDS: ENOXAPARIN 40 MG/0.4 ML SQ SCH (08:20)
[2022-04-13] MEDS: SOD FERRIC GLUC COMPLX/SUCROSE 125 MG in NA CHLORIDE 0.9% 100 ML IV SCH (08:43)
--- NOTE | 2022-04-13 16:02 | P.PN ---
Subjective Date of Service: 04/13/22 Chief Complaint: s/p right hip nail Patient has no complaint. Physical Examination - Vital Signs Temperature: 97.8 F Blood Pressure: 115/68 Pulse: 98 Respirations: 16 Pulse Ox (%): 98 Assessment And Plan - Plan Physical Exam: Gen: NAD, AOx3 HEENT: normal conjunctiva, sclera anicteric CV: regular rate & rhythm, no edema Pulm: non-labored respirations, clear bilaterally Abd: soft, non-tender, non-distended Integumentary: Ecchymosis left flank Neuro: normal speech, no focal motor deficit. vitals reviewed Problem List Severe hypovolemic hyponatremia Right intertrochanteric femur fracture Hypokalemia Rhabdomyolysis Leukocytosis, lactic acidosis Hypertension Previous aortic aneurysm [id number] acute on chronic anemia, blood loss; with iron deficiency hyponatremia, severe QUINN secondary to prerenal, secondary to hypovolemia, patient with minimal PO intake prior to admission Was also on diuretics. QUINN resolved. Hyponatremia improved. continue to monitor BMP. nephrology following CONS+ in blood Likely skin contaminant afebrile, no source of infection, empiric vancomycin discontinued. remains afebrile acute on chronic anemia, blood loss; with iron deficiency Status post 2 unit PRBC Hemoglobin has been stable around 8. no active bleed Continue iv iron rhabdomyolysis from fall CK level improved hip fracture, s/p fall s/p OR fixation on 04/08 Continue PT Patient slated for skilled rehab placement. Awaiting placement. Code: full
--- NOTE | 2022-04-13 17:05 | PN ---
Date of Progress Note: 04/13/2022 Subjective: The patient was admitted with acute kidney injury and hyponatremia with alkalosis and rh abdomyolysis. His acute kidney injury was secondary to hydrochlorothiazide and PETTY inhibitor and pre renal, recovered. The patient feeling better. Physical Examination: Vital Signs: Blood pressure 151/89, pulse of 81, afebrile. Chest: Clear to auscultation. Heart: S1, S2. Systolic murmur. Abdomen: Soft, nontender. Extremity: No edema. Neurologic: Alert. No focality. Laboratory Data: Hemoglobin 8.3. Sodium 133, potassium 4, bicarb 27, BUN 14, creatinine 0.6, calciu m 8. Current Medications: The patient on include; 1.Lovenox. 2.IV iron. 3.Zofran. 4.Docusate. 5.Tramadol. 6.KCl. Assessment And Plan: 1.Acute kidney injury secondary to prerenal, superimposed with PETTY inhibitor and hydrochlorothiazide , recovered, resolved. 2.Hyponatremia secondary to depletional, recovered, superimposed with hydrochlorothiazide, resolved. 3.Alkalosis secondary to prerenal dehydration and hydrochlorothiazide, also resolved. 4.Hypokalemia. Continue supplement. 5.Rhabdomyolysis secondary to fall, hip fracture, status post surgery. Kidney function normalized. No need for the IV fluid. We will monitor. REINALDO Voice ID: [id number] Report ID: [id number]
[2022-04-14] MEDS: SODIUM CHLORIDE 1 GM TAB PO SCH ×2 (07:55→11:02)
[2022-04-14] MEDS: DOCUSATE NA 100 MG CAP PO SCH (07:55)
[2022-04-14] MEDS: ENSURE SURGERY 237 ML CAN PO SCH (07:56)
[2022-04-14] MEDS: ENOXAPARIN 40 MG/0.4 ML SQ SCH (07:56)
[2022-04-14] MEDS: SOD FERRIC GLUC COMPLX/SUCROSE 125 MG in NA CHLORIDE 0.9% 100 ML IV SCH (09:00)
[2022-04-14 10:55] VITALS: O2SAT 86
--- NOTE | 2022-04-14 11:06 | P.DS ---
Admission Date: 04/06/22 Discharge Date: 04/14/22 Disposition: DC HOME/HOME HEALTH CARE Discharge Condition: FAIR Reason for Admission: s/p right hip nail Brief History of Present Illness: 67-year-old male with history of hypertension, previous aortic aneurysm repair presents to the emergency department after a near syncopal episode and fall with right leg pain. He reports that he got up out of bed, walked to the toilet and while walking back got suddenly dizzy and collapsed. He did not lose consciousness but did injure his right lower extremity. He also reports testing positive for COVID on 03/27/2022, has not been feeling well with poor oral intake since then. He was evaluated here in the emergency department and x-ray showed right intertrochanteric femur fracture, labs were obtained which revealed patient had severe hyponatremia with a sodium of 111 potassium 2.6 chloride 72 bicarb 20 BUN 47 creatinine 2.22 GFR 32 white blood cell count 17.4 hemoglobin 10.5. Patient was given 500 cc NS bolus in the ED as well as IV potassium. Additional labs were obtained which showed elevated CPK 1145 lactic acid 3.8. No source of infection identified. Patient was hospitalized for further management. Hospital Course: Diagnosis: Severe hypovolemic hyponatremia Right intertrochanteric femur fracture Hypokalemia Rhabdomyolysis Leukocytosis, lactic acidosis Hypertension Previous aortic aneurysm [id number] acute on chronic anemia, blood loss; with iron deficiency Patient was admitted to the medical floor and the following medical problems addressed Hyponatremia. QUINN secondary to prerenal, secondary to hypovolemia, patient with minimal PO intake prior to admission Was also on diuretics. QUINN resolved with IV normal saline. Hyponatremia improved with IV normal saline and oral sodium tablet. Nephrology evaluated and managed her hyponatremia and QUINN CONS+ in blood Likely skin contaminant afebrile, no source of infection, he was treated briefly with empiric vancomycin. Asymptomatic. acute on chronic anemia, blood loss; with iron deficiency Status post 2 unit PRBC Hemoglobin has been stable around 8. no active bleed He received IV iron. rhabdomyolysis from fall CK level improved with IV hydration. hip fracture, s/p fall s/p OR fixation on 04/08 Seen by PT. Patient now able to ambulate 300 feet with standby assist and rolling walker. Insurance denied acute rehab placement. Patient opted to go home with home health Vitals are stable for discharge. He will follow-up with Dr. Whitney's in the office within a week. Dr. Whitney recommend Xarelto for DVT prophylaxis. Vital Signs/Physical Exam: Temp Pulse Resp BP Pulse Ox 98.5 F 86 18 140/69 98 04/14/22 08:00 04/14/22 08:00 04/14/22 08:00 04/14/22 08:00 04/14/22 08:00 General: Alert, In no apparent distress, Oriented x3 HEENT: Mucous membr. moist/pink Neck: JVD not distended Respiratory: Clear to auscultation bilaterally, Normal air movement Cardiovascular: No edema, Regular rate/rhythm, Normal S1 S2 Gastrointestinal: Soft and benign, Non-distended Integumentary: No rashes, No cyanosis Neurological: Normal strength at 5/5 x4 extr Laboratory Data at Discharge: WBC 8.70 K/uL (4.3-10.9) 04/13/22 03:49 Hgb 8.3 g/dL (13.6-17.9) L 04/13/22 03:49 Hct 24.1 % (39.6-49.0) L 04/13/22 03:49 Plt Count 187 K/uL (152-406) 04/13/22 03:49 PT 11.2 SECONDS (9.5-12.5) 04/06/22 18:00 INR 1.02 04/06/22 18:00 Sodium 133 mmol/L (136-145) L 04/13/22 03:49 Potassium 4.0 mmol/L (3.5-5.1) 04/13/22 03:49 BUN 14 mg/dL (7-18) 04/13/22 03:49 Creatinine 0.65 mg/dL (0.70-1.30) L 04/13/22 03:49 Glucose 102 mg/dL (74-106) 04/13/22 03:49 Uric Acid 9.4 mg/dL (3.5-7.2) H 04/06/22 18:00 Magnesium 1.7 mg/dL (1.6-2.4) 04/12/22 02:43 Triglycerides 106 mg/dL (<150) 04/07/22 02:08 Cholesterol 93 mg/dL (<200) 04/07/22 02:08 HDL Cholesterol 39 mg/dL (40-60) L 04/07/22 02:08 Cholesterol/HDL Ratio 2.38 04/07/22 02:08 Home Medications: Amlodipine Besylate 10 mg PO DAILY 04/07/22 Metoprolol Succinate 25 mg PO DAILY 04/07/22 Simvastatin 20 mg PO DAILY 04/07/22 Docusate [Colace Cap*] 100 mg PO BID #60 cap 04/14/22 Hydrocodone 7.5/APAP 325 [[place] 7.5/325 mg*] 1 tab PO Q4H PRN #30 tab 04/14/22 Nut.tx.comp. Immune Systm,Reg [Ensure Surgery] 237 ml PO BID #30 can 04/14/22 Rivaroxaban [Xarelto] 10 mg PO DAILY #30 tab 04/14/22 Sodium Chloride Tab [Sodium Chloride*] 2 gm PO TIDWM #180 tab 04/14/22 New Medications: Docusate [Colace Cap*] 100 mg PO BID #60 cap Nut.tx.comp. Immune Systm,Reg [Ensure Surgery] 237 ml PO BID #30 can Hydrocodone 7.5/APAP 325 [[place] 7.5/325 mg*] 1 tab PO Q4H PRN #30 tab PRN Reason: Pain Scale 8-10 (Severe) Sodium Chloride Tab [Sodium Chloride*] 2 gm PO TIDWM #180 tab Rivaroxaban [Xarelto] 10 mg PO DAILY #30 tab Diet: AHA Activity: Weight bearing as tolerated Followup: NONE,NONE [Primary Care Provider] - Ruben Whitney MD [ACTIVE - CAN ADMIT] - 1 Week (Within 1 week) Time spent managing pt's care (in minutes): 38
[2022-04-14 13:05] VITALS: BP 130/78; TEMP 98
--- NOTE | 2022-04-15 01:13 | PN ---
Date of Progress Note: 04/14/2022 Chief Complaint: Acute kidney injury associated with hyponatremia, alkalosis, and rhabdomyolysis. A cute kidney injury was secondary to volume depletion and PETTY inhibitor effect. Hyponatremia was due to hydrochlorothiazide and volume depletion. Review of Systems: Denies fever or chills. Physical Examination: Lungs: Clear to auscultation bilaterally. Heart: S1, S2. Abdomen: Soft. Extremities: No edema. Impression And Plan: 1.Acute kidney injury secondary to prerenal azotemia superimposed with PETTY inhibitor. Currently, re nal function has improved to baseline. 2.Hyponatremia secondary to volume depletion as well as effect of hydrochlorothiazide. Avoid hydroc hlorothiazide. 3.Alkalosis secondary to diuretic, resolved after adjustment of medication. 4.Hypokalemia. Supplementation was ordered. 5.Rhabdomyolysis secondary to hip fracture. Continue IV fluids. Monitor CK level. EB/MODL Voice ID: [id number] Report ID: [id number]
== END 2022-04-14 13:50 | disposition home health service (06) | DRG 628 ==
LOC: ER 16:21 → ERHOLD 21:57 → 2ND 04-07 15:45
PROVIDERS: ADMIT Hospitalist; ATTEND Internal Medicine
PROC: 30233N1 Transfusion of Nonautologous Red Blood Cells into Peripheral Vein, Percutaneous Approach (ICD-10-PCS; 2022-04-08)
PROC: 0QS606Z Reposition Right Upper Femur with Intramedullary Internal Fixation Device, Open Approach (ICD-10-PCS; principal; 2022-04-08 09:00)
DX: E87.1 Hypo-osmolality and hyponatremia (principal); S72.141A Displaced intertrochanteric fracture of right femur, initial encounter for closed fracture; M62.82 Rhabdomyolysis; N17.9 Acute kidney failure, unspecified; D62 Acute posthemorrhagic anemia; E87.20 Acidosis, unspecified; E86.1 Hypovolemia; E83.42 Hypomagnesemia; E87.3 Alkalosis; I10 Essential (primary) hypertension; E86.0 Dehydration; E87.6 Hypokalemia; Z86.16 Personal history of COVID-19; Z79.899 Other long term (current) drug therapy; Z20.822 Contact with and (suspected) exposure to COVID-19; W18.30XA Fall on same level, unspecified, initial encounter; Y92.9 Unspecified place or not applicable; Y93.01 Activity, walking, marching and hiking
CPT/HCPCS: 36415; 36430; 51702; 71045; 72170; 76770; 80048; 80061; 81001; 81003; 81015; 82533; 82550; 82607; 82805; 83540; 83605; 83735; 83930; 83935; 83970; 84132; 84300; 84443; 84466; 84484; 84550; 85014; 85018; 85025; 85027; 85044; 85610; 86850; 86900; 86901; 87040; 87086; 87088; 87205; 87811; 93005; 94010; 96374; 97110; 97116; 97161; 97530; 99284; J0171; J0690; J1100; J1650; J2001; J2405; J2704; J2916; J3010; J3370; J3475; J3480; J7030; J7050; J7120; P9016; Q2035